=== PATIENT | female | born 1960 | race Caucasian/White ===

== ENCOUNTER → 2022-03-09 11:49 | Outpatient (BNVA) | payer OTHER, SELFPAY | PROVIDERS: Family Provider Nurse Practitioner Family; PCP Nurse Practitioner Family; Visit Provider Emergency Medicine | DX: R39.9 Unspecified symptoms and signs involving the genitourinary system (principal); R11.0 Nausea; R10.9 Unspecified abdominal pain; R31.9 Hematuria, unspecified; R10.30 Lower abdominal pain, unspecified; R31.0 Gross hematuria | CPT/HCPCS: 81000; 87077; 87086; 87184 ==